=== PATIENT | male | born 2000 | race Caucasian/White ===

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

== ENCOUNTER 2023-07-01 18:55 | Emergency (ER) | payer OTHER, BC ==
[~2023-07-01] VITALS: Ht 165.1 cm; Wt 81.8 kg
[2023-07-01 19:26] VITALS: BP 111/74; TEMP 98.6
[2023-07-01 20:21] VITALS: PULSE 105; RESP 16; O2SAT 99
== END 2023-07-01 20:41 ==
LOC: ER 20:30
DX: Z88.2 Allergy status to sulfonamides
CPT/HCPCS: 99283